=== PATIENT | female | born 1950 | race Asian ===

== ENCOUNTER 2022-11-13 14:25 | Emergency (ER) | payer MEDICARE ==
[~2022-11-13] VITALS: Ht 152.4 cm; Wt 59.1 kg
[2022-11-13] MEDS: ACETAMINOPHEN 325 MG TABLET PO ONE ×2 (15:22→15:29)
[2022-11-13 16:55] VITALS: BP 135/100
== END 2022-11-13 16:58 | disposition home or self-care (01) ==
LOC: EMS 14:32
DX: S46.091A Other injury of muscle(s) and tendon(s) of the rotator cuff of right shoulder, initial encounter (principal); I10 Essential (primary) hypertension; V89.2XXA Person injured in unspecified motor-vehicle accident, traffic, initial encounter; Y93.89 Activity, other specified; Y92.89 Other specified places as the place of occurrence of the external cause; Y99.8 Other external cause status
CPT/HCPCS: 99283

== ENCOUNTER 2023-01-21 13:25 | Emergency (ER) | payer MEDICARE ==
[~2023-01-21] VITALS: Ht 157.5 cm; Wt 66.8 kg
[2023-01-21 13:30] VITALS: BP 112/61
[2023-01-21] MEDS ORDERED: AMLO2.5T29 PO (13:31)
== END 2023-01-21 17:47 | disposition left against medical advice (07) ==
LOC: EMS 13:35
DX: M25.562 Pain in left knee (principal); M25.561 Pain in right knee; Z53.21 Procedure and treatment not carried out due to patient leaving prior to being seen by health care provider
CPT/HCPCS: 99281; Z7502

== ENCOUNTER → 2023-01-22 | Outpatient (CLI) | payer MEDICARE ==
[~2023-01-22] MED LIST: AMLO2.5T29 PO
== END | disposition home or self-care (01) ==
LOC: RADMN 15:41
PROVIDERS: ATTEND Family Medicine
DX: M17.11 Unilateral primary osteoarthritis, right knee (principal); M25.761 Osteophyte, right knee
CPT/HCPCS: 73562-TC